=== PATIENT | female | born 1965 | race Caucasian/White ===

== ENCOUNTER 2022-07-20 16:35 | Outpatient (CLI) | payer OTHER, SELFPAY | END 2022-07-20 16:36 | disposition home or self-care (01) | LOC: NFLDUCREF 07-22 10:31 | PROVIDERS: Visit Provider Registered Nurse | DX: R30.0 Dysuria (principal); N39.0 Urinary tract infection, site not specified | CPT/HCPCS: 87086; 87186 ==